=== PATIENT | female | born 1975 | race Caucasian/White ===

== ENCOUNTER 2016-08-13 00:01 | Emergency (ER) | payer OTHER | END 2016-08-13 02:16 | disposition home or self-care (01) | LOC: ED 00:01 | DX: H10.9 Unspecified conjunctivitis (principal); E11.9 Type 2 diabetes mellitus without complications; E03.9 Hypothyroidism, unspecified; F17.210 Nicotine dependence, cigarettes, uncomplicated; Z79.899 Other long term (current) drug therapy ==

== ENCOUNTER 2016-08-20 02:25 | Emergency (ER) | payer OTHER ==
[2016-08-20] MEDS ORDERED: CEFTRIAXONE 1 GRAM DUPLEX 50 ML IV ONE (02:57)
== END 2016-08-20 03:23 | disposition home or self-care (01) ==
LOC: ED 02:25
DX: L02.611 Cutaneous abscess of right foot (principal); E11.9 Type 2 diabetes mellitus without complications; Z79.84 Long term (current) use of oral hypoglycemic drugs